=== PATIENT | female | born 1970 | race Caucasian/White ===

== ENCOUNTER 2017-05-01 07:39 | Emergency (ER) | payer MEDICAID ==
[2017-05-01 09:34] LABS: UA SPECIFIC GRAVITY <=1.005 (1.005-1.035); microscopic required? YES; urine erythrocyte 2+ (NEGATIVE)
[2017-05-01 10:29] LABS: BASOPHIL % 0.3 % (0-2); PLATELET COUNT 158 x10^3mcL (130-400); RED CELL DISTRIBUTION WIDTH 15.1 % (11.5-14.5)
[2017-05-01 11:13] VITALS: BP 135/79
== END 2017-05-01 11:13 | disposition home or self-care (01) ==
LOC: ED 07:39
PROVIDERS: Emergency Medicine Emergency Medical Services
DX: O36.4XX0 Maternal care for intrauterine death, not applicable or unspecified (principal); Z3A.24 24 weeks gestation of pregnancy
CPT/HCPCS: 36415; 87491; 87591; Q0092

== ENCOUNTER 2017-12-30 17:23 | Emergency (ER) | payer MEDICAID ==
[~2017-12-30] VITALS: Ht 157.5 cm; Wt 69.4 kg
[2017-12-30 17:41] VITALS: Ht 157.5 cm; Wt 69.4 kg
[2017-12-30 18:27] LABS: BASOPHIL % 0.4 % (0-2); PLATELET COUNT 193 x10^3mcL (130-400); RED CELL DISTRIBUTION WIDTH 14.2 % (11.5-14.5)
[2017-12-30 21:24] VITALS: BP 133/82
== END 2017-12-30 21:20 | disposition home or self-care (01) ==
LOC: ED 17:23
PROVIDERS: Emergency Medicine
DX: N93.8 Other specified abnormal uterine and vaginal bleeding (principal); J45.909 Unspecified asthma, uncomplicated
CPT/HCPCS: 36415

== ENCOUNTER 2019-07-11 18:07 | Emergency (ER) | payer BC ==
[~2019-07-11] VITALS: Ht 152.4 cm; Wt 67.1 kg
[2019-07-11 19:23] VITALS: Ht 152.4 cm; Wt 67.1 kg
[2019-07-11 19:42] LABS: BASOPHIL % 0.3 % (0-2); PLATELET COUNT 255 x10^3mcL (130-400)
[2019-07-11 19:46] LABS: CALCIUM 8.8 mg/dL (8.5-10.1); CARBON DIOXIDE 26.7 mmol/L (21-32); CHLORIDE SERUM 107 mmol/L (98-107); CREATININE SERUM 0.7 mg/dL (0.6-1.0); GFR1 > 60 mL/min; GLUCOSE SERUM 86 mg/dL (74-106); POTASSIUM SERUM 3.4 mmol/L (3.5-5.1); RED CELL DISTRIBUTION WIDTH 19.7 % (11.5-14.5); SODIUM SERUM 142 mmol/L (136-145)
[2019-07-11 19:51] LABS: ALBUMIN 3.5 g/dL (3.4-5.0); ALKALINE PHOSPHATASE 79 U/L (46-116); ALT/SGPT 22 U/L (14-59); AST/SGOT 17 U/L (15-37); BILIRUBIN TOTAL 0.18 mg/dL (0.20-1.00); TOTAL PROTEIN, SERUM 7.5 g/dL (6.4-8.2)
[2019-07-11 21:15] VITALS: BP 110/41
== END 2019-07-11 21:15 | disposition home or self-care (01) ==
LOC: ED 18:07
PROVIDERS: Emergency Medicine
DX: D64.9 Anemia, unspecified (principal); R42 Dizziness and giddiness; J45.909 Unspecified asthma, uncomplicated
CPT/HCPCS: 36415

== ENCOUNTER 2019-11-24 09:28 | Emergency (ER) | payer BC ==
[~2019-11-24] VITALS: Ht 157.5 cm; Wt 73.0 kg
[2019-11-24 09:42] VITALS: Ht 157.5 cm; Wt 73.0 kg
[2019-11-24 10:57] VITALS: BP 120/41
== END 2019-11-24 10:57 | disposition home or self-care (01) ==
LOC: ED 09:28
DX: N39.0 Urinary tract infection, site not specified (principal); J45.909 Unspecified asthma, uncomplicated